=== PATIENT | male | born 1960 | race Caucasian/White ===

== ENCOUNTER 2018-07-22 11:32 | Emergency (ER) | payer BC ==
--- NOTE | 2018-07-22 12:20 | ED ---
CPR HPI - General Stated Complaint: cardiac arrest Time Seen by Provider: 07/22/18 11:32 Source: EMS, RN notes reviewed Mode of arrival: EMS - History of Present Illness Initial Comments: This was a 58-year-old male with a history of CHF depression and anxiety a smoker who also had a history of hyperglycemia and obesity who apparently was in his garage talking to his daughter when he suddenly gas and fell backwards becoming unresponsive. The daughter apparently started CPR right away also EMS was contacted and did respond to the scene. Patient was found to be and what was believed to be a V. fib arrest per paramedics the crew performing 4 attempts that defibrillation the patient also received a total of 7 doses of epinephrine and 300 mg amiodarone. He was found have a glucose was 114. Patient was placed on a Savage device and transported here for further evaluation and continued treatment. Upon arrival the patient was found be unresponsive he had a Ruperto airway in place an Savage device functioning. No other reports of any other recent issues other than after contacting the physician occupational therapy assistant taking care of the patient was found that the patient had recent problems with increased edema to his lower extremities and leg pain. MD Complaint: collapsed during rest Review of Systems ROS Statement: Those systems with pertinent positive or pertinent negative responses have been documented in the HPI. ROS Other: All systems not noted in ROS Statement are negative. Limitations: ROS unobtainable due to patients medical condition General Exam - General Exam Comments Initial Comments: This a well-developed morbidly obese male who is unresponsive with CPR progress. Limitations: altered mental status, physical limitation General appearance: other (Unresponsive) Head exam: Present: atraumatic, normal inspection Eye exam: Present: other (Pupils fixed and dilated at approximately 4 mm and responsive to light) ENT exam: Present: other (Ruperto airway in place with frothy sputum noted.) Neck exam: Present: normal inspection Respiratory exam: Present: other (Good airway movement with bag valve applied to the Ruperto airway.) Cardiovascular Exam: Present: other (Asystole) GI/Abdominal exam: Present: soft, distended Extremities exam: Present: other (Peripheral edema with some stasis changes in lower extremities). Absent: normal capillary refill Back exam: Present: normal inspection Neurological exam: Present: other (Unresponsive) Psychiatric exam: Present: other (Unresponsive) Skin exam: Present: intact, cyanosis Course - Reevaluation(s) Reevaluation #1: 05/23/19 12:20 I did discuss the case with the physician occupational therapy assistant José Miguel Chandra to obtain further information no family was available thus far. The patient is supervised by Dr. Bello Reevaluation #2: 07/22/18 12:21 I did discuss the case with the medical library assistant's office, Sommer Dorsey, the [place] [facility] [place] pending further investigation. 07/22/18 12:22 Reevaluation #3: 07/22/18 13:18 I did a long discussion with multiple family members who did arrive regarding the events of this morning. Patient daughter who was present with the patient did describe the patient not feeling well and suddenly passed out as described it. She did perform CPR initially and did call 911. Family does not request autopsy. Patient is currently in aVL by the medical library assistant's office. Disposition Clinical Impression: Sudden cardiac due to cardiac arrhythmia, Ventricular fibrillation, History of hypertension, History of peripheral edema Disposition: Referrals: None,Stated [REFERRING] - 1-2 days Preliminary Cause of : Sudden cardiac , ventricular fibrillation
== END 2018-07-22 14:20 | disposition expired ==
LOC: EC 11:34
DX: I49.9 Cardiac arrhythmia, unspecified (principal); I49.01 Ventricular fibrillation; E66.01 Morbid (severe) obesity due to excess calories; Z86.79 Personal history of other diseases of the circulatory system
CPT/HCPCS: 92950; 99285